=== PATIENT | female | born 1985 | race Asian ===

== ENCOUNTER 2017-12-31 09:26 | Emergency (ER) | payer SELFPAY ==
--- NOTE | 2017-12-31 09:43 | EDPHY ---
H & P Stated Complaint: vag spotting & gen abd pain since this am-5 weeks Time Seen by Provider: 12/31/17 09:31 HPI/ROS: CHIEF COMPLAINT: Vaginal bleeding, 5 weeks HISTORY OF PRESENT ILLNESS: 32-year-old female TAB1 currently approximately 5 weeks in the ER with via private vehicle complaining of lower abdominal cramping and vaginal bleeding since this morning at 7:00 a.m. When she awoke. No passage of clots. No back or flank pain. No nausea or vomiting. No trauma. No urinary complaints. PCP: [facility] REVIEW OF SYSTEMS: 10 systems reviewed and negative with the exception of the elements mentioned in the history of present illness PAST MEDICAL & SURGICAL HISTORY: TAB1 currently approximately 5 weeks SOCIAL HISTORY: nonsmoker PHYSICAL EXAM (Prior to examination, patient consented to physical exam, hands were washed and my usual and customary physical exam procedures followed) 1) GENERAL: Well-developed, well-nourished, alert and oriented. Appears to be in no acute distress. 2) HEAD: Normocephalic, atraumatic 3) HEENT: Pupils equal, round, reactive to light bilaterally. Sclera anicteric. Nasopharynx, oropharynx, clear, no lesions. MoistDry mucous membranes. Ears bilaterally with normal tympanic membranes. 4) NECK: Full range of motion, no meningeal signs. 5) LUNGS: Clear auscultation bilaterally, no wheezes, no rhonchi, no retractions. 6) HEART: Regular rate and rhythm, no murmur, no heave, no gallop. 7) ABDOMEN: No guarding, no rebound, no focal tenderness, negative McBurney's, negative Silver's, negative Rovsing's, negative peritoneal sign, 8) MUSCULOSKELETAL: Moving all extremities, no focal areas of tenderness, no obvious trauma. No peripheral edema or discoloration. 9) BACK: No CVA tenderness, no midline vertebral tenderness, no fluctuance, no step-off, no obvious trauma, no visual or palpable abnormality. 10) SKIN: No rash, no petechiae. 11) PELVIC (with female tech Kaylen at bedside): Normal female external genitalia, no lesions visualized. Speculum examination reveals scant amount of old blood in the vaginal vault., normal vaginal rugae, os closed,, DIFFERENTIAL DIAGNOSIS: In no particular order including but not limited to threatened , spontaneous , ectopic - Personal History LMP (Females 10-55): - Medical/Surgical History Hx Asthma: No Hx Chronic Respiratory Disease: No Hx Diabetes: No Hx Cardiac Disease: No Hx Renal Disease: No Hx Cirrhosis: No Hx Alcoholism: No Hx HIV/AIDS: No Hx Splenectomy or Spleen Trauma: No Other PMH: denies - Social History Smoking Status: Never smoked Constitutional: Initial Vital Signs Temperature (C) 36.7 C 12/31/17 09:28 Heart Rate 77 12/31/17 09:28 Respiratory Rate 18 12/31/17 09:28 Blood Pressure 108/62 12/31/17 09:28 O2 Sat (%) 97 12/31/17 09:28 O2 Delivery Mode Room Air Allergies/Adverse Reactions: No Known Allergies Allergy (Unverified 12/31/17 09:27) Home Medications: Medication Instructions Recorded NK [No Known Home Meds] 12/31/17 Medical Decision Making - Diagnostics Imaging Results: Imaging Impressions Obstetrics Ultrasound 12/31/17 09:39 Impression: 1. Retroflexed uterus. 2. No evidence of intrauterine gestational sac. Follow-up beta hCG is recommended as clinically directed. 3. Normal-appearing ovaries with follicles and small follicular cysts. Findings discussed with Romel De La Torre PAC at 11:24 hour, 12/31/2017. Images reviewed myself ED Course/Re-evaluation: 9:42 a.m.: I have examined the patient. Will obtain diagnostic studies including Rh status, ultrasonography. I saw this patient independently based on established practice protocols. Care of patient under supervision of secondary supervising physician Dr Luisa Fair with whom I discussed case. 11:34 a.m.: Patient's Rh positive. She has a scant amount of old blood in the vaginal vault. Discussed with patient her diagnostic results including her HCG of 10. Suspect that the patient's dating is off by some weeks. At this point have informed the patient and her that ectopic , spontaneous , threatened , are not ruled out. The importance of close follow-up has been stressed on numerous instances. She is comfortable at this time. Plan will be discharge home with my usual customary obstetrical precautions and instructions - Data Points Laboratory Results: Laboratory Results 12/31/17 09:48 12/31/17 09:48 12/31/17 12/31/17 12/31/17 10:45 09:48 09:48 WBC RBC Hgb Hct MCV MCH MCHC RDW Plt Count MPV Neut % (Auto) Lymph % (Auto) [place] % (Auto) Eos % (Auto) Baso % (Auto) Nucleat RBC Rel Count Absolute Neuts (auto) Absolute Lymphs (auto) Absolute Monos (auto) Absolute Eos (auto) Absolute Basos (auto) Absolute Nucleated RBC Immature Gran % Immature Gran # Sodium 141 mEq/L mEq/L (135-145) Potassium 3.7 mEq/L mEq/L (3.3-5.0) Chloride 106 mEq/L mEq/L (97-110) Carbon Dioxide 24 mEq/l mEq/l (22-31) Anion Gap 11 mEq/L mEq/L (6-14) BUN 12 mg/dL mg/dL (7-23) Creatinine 0.6 mg/dL mg/dL (0.6-1.0) Estimated GFR > 60 Glucose 93 mg/dL mg/dL (70-100) Calcium 9.0 mg/dL mg/dL (8.5-10.4) Beta HCG, Quant 10.55 mIU/mL H mIU/mL (0.00-4.83) Urine Color YELLOW Urine Appearance CLEAR Urine pH 7.0 (5.0-7.5) Ur Specific [place] 1.017 (1.002-1.030) Urine Protein NEGATIVE (NEGATIVE) Urine Ketones NEGATIVE (NEGATIVE) Urine Blood 1+ H (NEGATIVE) Urine Nitrate NEGATIVE (NEGATIVE) Urine Bilirubin NEGATIVE (NEGATIVE) Urine Urobilinogen NEGATIVE EU EU (0.2-1.0) Ur Leukocyte Esterase NEGATIVE (NEGATIVE) Urine RBC 1-3 /hpf /hpf (0-3) Urine WBC 1-3 /hpf /hpf (0-3) Ur Epithelial Cells TRACE /lpf /lpf (NONE-1+) Urine Mucus TRACE /lpf /lpf (NONE-1+) Urine Glucose NEGATIVE (NEGATIVE) Patient ABO/Rh A POSITIVE 12/31/17 09:48 WBC 9.98 10^3/uL H 10^3/uL (3.80-9.50) RBC 5.42 10^6/uL H 10^6/uL (4.18-5.33) Hgb 12.1 g/dL L g/dL (12.6-16.3) Hct 39.4 % % (38.0-47.0) MCV 72.7 fL L fL (81.5-99.8) MCH 22.3 pg L pg (27.9-34.1) MCHC 30.7 g/dL L g/dL (32.4-36.7) RDW 14.2 % % (11.5-15.2) Plt Count 266 10^3/uL 10^3/uL (150-400) MPV 9.9 fL fL (8.7-11.7) Neut % (Auto) 76.9 % H % (39.3-74.2) Lymph % (Auto) 15.7 % % (15.0-45.0) [place] % (Auto) 6.2 % % (4.5-13.0) Eos % (Auto) 0.6 % % (0.6-7.6) Baso % (Auto) 0.3 % % (0.3-1.7) Nucleat RBC Rel Count 0.0 % % (0.0-0.2) Absolute Neuts (auto) 7.67 10^3/uL H 10^3/uL (1.70-6.50) Absolute Lymphs (auto) 1.57 10^3/uL 10^3/uL (1.00-3.00) Absolute Monos (auto) 0.62 10^3/uL 10^3/uL (0.30-0.80) Absolute Eos (auto) 0.06 10^3/uL 10^3/uL (0.03-0.40) Absolute Basos (auto) 0.03 10^3/uL 10^3/uL (0.02-0.10) Absolute Nucleated RBC 0.00 10^3/uL 10^3/uL (0-0.01) Immature Gran % 0.3 % % (0.0-1.1) Immature Gran # 0.03 10^3/uL 10^3/uL (0.00-0.10) Sodium Potassium Chloride Carbon Dioxide Anion Gap BUN Creatinine Estimated GFR Glucose Calcium Beta HCG, Quant Urine Color Urine Appearance Urine pH Ur Specific [place] Urine Protein Urine Ketones Urine Blood Urine Nitrate Urine Bilirubin Urine Urobilinogen Ur Leukocyte Esterase Urine RBC Urine WBC Ur Epithelial Cells Urine Mucus Urine Glucose Patient ABO/Rh Medications Given: Discontinued Medications Hydromorphone HCl (Dilaudid) 1 mg IVP EDNOW ONE Stop: 12/31/17 11:21 Last Admin: 12/31/17 11:21 Dose: Not Given Departure - Departure Disposition: Home, Routine, Self-Care Clinical Impression: Vaginal bleeding before 22 weeks gestation Condition: Good Instructions: Threatened Miscarriage (ED) Additional Instructions: Return to the ER if you develop new or worsening symptoms, if you develop an increase in vaginal bleeding, if you develop an increase in abdominal pain, if you develop lightheadedness. Avoid heavy lifting or exertional activities. Referrals: [facility],. [Clinic] - 1-2 days without fail Stand Alone Forms: Work Excuse
[2017-12-31 10:07] LABS: PLATELET COUNT 266 10^3/uL (150-400)
[2017-12-31] MEDS ORDERED: HYDROmorphONE/DILAUDID 1 MG/ML INJ IVP ONE (11:20)
[2017-12-31 11:53] VITALS: BP 96/65
== END 2017-12-31 11:53 | disposition home or self-care (01) ==
DX: O26.851 Spotting complicating pregnancy, first trimester (principal); Z3A.01 Less than 8 weeks gestation of pregnancy